=== PATIENT | female | born 1980 | race African-American/Black ===

== ENCOUNTER → 2022-08-24 08:45 | Outpatient (BNVA) | payer OTHER, SELFPAY | PROVIDERS: PCP Physician Assistant; Visit Provider Nurse Practitioner Family | DX: G43.109 Migraine with aura, not intractable, without status migrainosus (principal); G47.19 Other hypersomnia; G47.9 Sleep disorder, unspecified; R06.83 Snoring; F32.A Depression, unspecified; K21.9 Gastro-esophageal reflux disease without esophagitis | CPT/HCPCS: 99202 ==

== ENCOUNTER → 2022-11-09 12:41 | Outpatient (REF) | payer OTHER, SELFPAY | LOC: HO.SL 12:41 | PROVIDERS: PCP Physician Assistant; Visit Provider Nurse Practitioner Family | DX: G47.19 Other hypersomnia (principal); G47.9 Sleep disorder, unspecified; R06.83 Snoring; Z98.890 Other specified postprocedural states | CPT/HCPCS: 95806 ==

== ENCOUNTER 2023-10-02 12:47 | Outpatient (AMB) | payer OTHER, SELFPAY ==
--- NOTE | 2023-10-02 13:15 | MHC.OFFVIS ---
Intake Vital Signs 10/02/23 13:21 Height 51 ft 1 in Weight 116 lb 2 oz BMI 0.2 BP 112/64 Pulse 50 Pulse Source Pulse Oximeter Pulse Oximetry (%) 100 Oxygen Delivery Method Room Air Intake Visit Reasons: follow up-LVM Intake Note: Patient presents for F/U. Lots of headaches and having trouble sleeping at night. Ear blows out air and they hurt. Allergies No Known Allergies Allergy (Verified 10/02/23 13:20) Medication List - Last Reconciled 10/02/23 by ROBERT Cerna amitriptyline 10 mg PO BEDTIME 30 days ferrous sulfate 325 mg PO QAM hydroxyzine pamoate 25 mg PO TID magnesium oxide 400 mg PO BEDTIME 30 days norethindrone (contraceptive) 0.35 mg PO DAILY prazosin 2 mg PO QPM riboflavin (vitamin B2) 400 mg (4 x 100 mg) PO DAILY 30 days sertraline 25 mg PO DAILY sumatriptan succinate 50 - 100 mg orally at onset of headache, may repeat in 2 hrs PRN; max 2 tabs per day or 4 tabs/week (may take with Ibuprofen or Aleve) 30 days trazodone 100 - 200 mg PO BEDTIME PRN HPI HPI Comments History of Present Illness Details 43-yr-old female presents for f/u visit. Pt denies any significant interval medical changes. Denies any interval ear infections. Did recently go to urgent care for pain on the bilateral sides, which is slowly resolving. Dx- ? kidney stones- x-ray was normal. Tx'd w/ Ibuprofen. Denies h/o kidney stones. Does drink a lot of soda. Pt reports her headache and ear symptoms are progressing- more severe more often, still constant. Feels like air is escaping from her ears. Has increased whooshing tinnitus. She did try: Sumatriptan 100mg tab- initially was more effective, now less so. Can cause nausea and dizziness, initially caused vomiting. Riboflavin 400mg qam- ineffective Magnesium 400mg qhs- ineffective Amitriptyline 10mg qhs- ineffective after 2-3 months. Baseline headache characteristics: The episode starts as a holocranial tingling, f/b bilateral temporal pressure, and stabbing pain in bilateral ears (initially worse on right, now worse on left). Pain intensity? 10+/10 Prodrome symptoms? Onset Aura? no preceding aura Associated symptoms? sees black dots, rarely diplopia, blurry vision, photophpbia, phonophobia, nausea, rarely vomiting, external spinning dizziness, lightheadedness, lip twitching, eye lid twitching, eye movements, bilateral cheek numbness, watery eyes, generalized weakness- maybe more noticeable on left, activity intolerance, scalp twitching, head tremor (can occur other times as well), feels ear moves up/down then pops, worsening whooshing tinnitus. 08/24/22, Initial HPI summary: Pt reports that she has been having headaches since May 2020, which have been worsening over time. She was living in [place] when these headaches started. Denies preceding cause, but did have significant left/right ear infections x's 3 in [id number]. Per PCP note, Brain MRI in showed left petrous apex complex opacification of partial pneumatization, partial empty sella. F/u Ct temporal w/o in 02/19 bilateral petrous apex pneumatization w/ patch opacification present on left- raised possibility of trapped fluid in left petrous apex w/o definite expansile or aggressive features. Pt states she recently underwent f/u head imaging at [facility]- results of which I unfortunately do not have- but will request. History of musculoskeletal disorders or injury? None. History of concussion/head injury? None History of mood disorder? depression, anxiety, h/o SI- f/b psychology and psychiatry- [facility]. denies h/o bipolar d/o. History of sleep disorder? Does not sleep well. Difificulty w/ sleep initiation and maintanence. Prone to bad dreams, snoring. Wakes up gasping like she will vomit about twice a week. History of respiratory disease? h/o lung surgery 2017- bilateral lung collapsed. Since easily SOBOE. History of CV disease? h/o of HTN but stable for a few years History of coagulopathy? None History of endocrine or metabolic disease? None History of seizure? None Family planning? No PFSH Surgical History History of lung surgery Family History Mother Stomach cancer Father AIDS Maternal Grandmother Lung cancer Maternal Aunt Throat cancer Social History Alcohol intake: current Alcohol intake frequency: holidays/special occasions only Patient Tobacco Use Status: Never used Tobacco Physical Exam Vital Signs: Last Vital Signs Pulse 50 10/02/23 13:21 BP 112/64 10/02/23 13:21 Pulse Ox 100 10/02/23 13:21 Oxygen Delivery Method Room Air 10/02/23 13:21 BMI result Body Mass Index 0.2 Const General: cooperative and no acute distress Orientation/consciousness: patient oriented x3 Resp Effort & Inspection: normal respiratory effort and able to speak in complete sentences Neuro General: patient oriented x3 Cranial nerves: Yes CN's II-XII intact bilaterally Cognition (Neuro): normal cognition Psych Appearance: grossly normal Mental Status: mental status grossly normal Speech and movement: Normal speech and movement present Affect: normal affect Attitude: cooperative Assessment & Plan Assessment & Plan (1) Worsening headaches: Code(s): R51.9 - Headache, unspecified (2) Tinnitus, bilateral: Code(s): H93.13 - Tinnitus, bilateral (3) Chronic migraine with aura: Comment: ? if some aura-like s/s of twitching are secondary to muscle spasms. Code(s): G43.109 - Migraine with aura, not intractable, without status migrainosus Plan Pt advised to undergo f/u brain MRI w/wo to assess status of previous Brain MRI results- Brain MRI in showed left petrous apex complex opacification of partial pneumatization, partial empty sella with f/u Ct temporal w/o in 02/19 bilateral petrous apex pneumatization w/ patch opacification present on left. Will refer pt for ENT consult. Reviewed HST- no evidence for sleep apnea. Consider in-lab PSG in f/u. For overall headache management: Continue to optimize good self-care, including but not limited to maintaining a healthy diet, adequate fluid intake, adequate sleep, and engaging in regular physical activity. Track headaches. For acute headache treatment: Discussed importance of taking acute medications at the first sign of headache, however stressed importance of avoiding acute medication overuse (especially with combined headache medications). Trial Rizatriptan 10mg prn. May take w/ Ibuprofen. Hold Sumatriptan 100mg tab- lost effectiveness. Previous acute migraine medication trials: fioricet- ineffective. Acute migraine medication contraindications: None at this time For headache prevention medication: Hold Riboflavin 400mg qam Hold Magnesium 400mg qhs Resume Amitriptyline at increased dose of 25mg qhs Start Emgality 240mg sc x's 1, then 120mg sc x's 1. Previous migraine prevention medication trials: None Migraine prevention medication contraindications: I would avoid BBs as pt has h/o tamiko collapsed lung/surgery and has residual SOBOE. f/u appt in 6 months or sooner prn. Orders: Orders MR head/brain wo/w con Today E23.6 - Other disorders of pituitary gland, H93.13 - Tinnitus, bilateral, R51.9 - Headache, unspecified Referrals Ear/Nose/Throat Referral E23.6 - Other disorders of pituitary gland, H93.13 - Tinnitus, bilateral, R51.9 - Headache, unspecified Medications: New rizatriptan max 2 tabs per day or 4 tabs per week (may take w/ Ibuprofen) 5 - 10 mg (0.5 - 1 x 10 mg) PO Q2H 21 days PRN 12 tabs 3RF migraine headache amitriptyline 25 mg PO BEDTIME 30 days 30 tabs 3RF galcanezumab-gnlm (Emgality Pen) Loading dose 240mg 240 mg (2 mL) subcut ONCE 30 days 2 mL 0RF Discontinued amitriptyline Discontinued Reason: Doctor's Order 10 mg PO BEDTIME 30 days 30 tabs 3RF Coding Level of Care Code Est Pt Level 4 (24689) Diagnoses Worsening headaches R51.9 Tinnitus, bilateral H93.13 Chronic migraine with aura G43.109
[2023-10-02 13:21] VITALS: BP 112/64; PULSE 50; O2SAT 100
== END 2023-10-02 14:00 | disposition home or self-care (01) ==
PROVIDERS: PCP Physician Assistant; Visit Provider Nurse Practitioner Family
DX: R51.9 Headache, unspecified (principal); H93.13 Tinnitus, bilateral; G43.109 Migraine with aura, not intractable, without status migrainosus
CPT/HCPCS: 99214

== ENCOUNTER → 2023-10-02 12:47 | Outpatient (BNVA) | payer OTHER, SELFPAY | PROVIDERS: PCP Physician Assistant; Visit Provider Nurse Practitioner Family | DX: R51.9 Headache, unspecified (principal); G43.109 Migraine with aura, not intractable, without status migrainosus; H93.13 Tinnitus, bilateral | CPT/HCPCS: 99212 ==

== ENCOUNTER 2023-11-20 07:52 | Outpatient (REF) | payer OTHER, SELFPAY ==
--- NOTE | ~2023-11-20 | MR_ITS ---
MRI OF THE BRAIN WITH AND WITHOUT IV CONTRAST INDICATION: Headache. MRI brain [place] showing left petrous apex complex opacification of partial pneumatization and partially empty sella. Follow-up CT temporal bone in February 19 with bilateral petrous apex pneumatization with patchy opacification present on the left raising the possibility of trapped fluid within the left petrous apex. COMPARISON: None available at the time of dictation. TECHNIQUE: Multiplanar multisequence MR imaging of the brain was obtained without and following the administration of 2.5 mL of Gadavist without complication. FINDINGS: There is no pathologic intracranial enhancement. There is no hydrocephalus, extra-axial surface collection, or herniation. The major flow voids at the skull base are preserved. There is no acute infarct on diffusion-weighted imaging. There is no intracranial hemorrhage on the gradient recalled echo acquisition. There is a possible focal area of hypoenhancement within the right aspect of the anterior pituitary lobe measuring 5 mm that can be correlated with endocrine function tests to exclude a functional pituitary microadenoma. There is no significant sellar/suprasellar mass effect. The cerebellar tonsils are normally positioned. The cerebellum and brainstem are normal. Opacification of left greater then right petrous apex air cells that can be compared to any outside imaging if available for comparison. No definite petrous apex expansion to suggest a cholesterol granuloma. No pathologic enhancement in these areas. MR/MR head/brain wo/w con IMPRESSION: - Opacification of left greater then right petrous apex air cells that can be compared to any outside imaging if available for comparison. No definite petrous apex expansion to suggest a cholesterol granuloma. No pathologic enhancement in these areas. - There is a possible focal area of hypoenhancement within the right aspect of the anterior pituitary lobe measuring 5 mm that can be correlated with endocrine function tests to exclude a functional pituitary microadenoma. There is no significant sellar/suprasellar mass effect.
[2023-11-20] MEDS: gadobutroL 7.5 ML VIAL IVPUSH (09:05)
== END 2023-11-20 07:53 | disposition home or self-care (01) ==
LOC: HO.MRI 07:52
PROVIDERS: PCP Physician Assistant; Visit Provider Nurse Practitioner Family
DX: R51.9 Headache, unspecified (principal); E23.6 Other disorders of pituitary gland; H93.13 Tinnitus, bilateral
CPT/HCPCS: 70553; A9585

== ENCOUNTER 2024-03-11 13:29 | Outpatient (AMB) | payer OTHER, SELFPAY ==
[2024-03-11 13:36] VITALS: BP 110/76; BMI 21.0
--- NOTE | 2024-03-11 13:36 | A.OFFVIS_ITS ---
Vital Signs 03/11/24 13:36 Height 5 ft 1 in Weight 111 lb BMI 21.0 BP 110/76 Blood Pressure Location Rt brachial Position Sitting Intake Visit Reasons: follow up Intake Note: Patient presents for follow up. Allergies No Known Allergies Allergy (Verified 03/11/24 13:38) Medication List - Last Reconciled 03/11/24 by ROBERT Cerna alprazolam 0.25 - 0.5 mg orally 1 tab 30 minutes prior to MRI, may repeat 0.25mg x's 1; (max 3 tabs in a day) 1 day amitriptyline 25 mg PO BEDTIME 30 days ferrous sulfate 325 mg PO QAM galcanezumab-gnlm (Emgality Pen) 240 mg (2 mL) subcut ONCE 30 days hydroxyzine pamoate 25 mg PO TID magnesium oxide 400 mg PO BEDTIME 30 days norethindrone (contraceptive) 0.35 mg PO DAILY prazosin 2 mg PO QPM riboflavin (vitamin B2) 400 mg (4 x 100 mg) PO DAILY 30 days rizatriptan 5 - 10 mg (0.5 - 1 x 10 mg) PO Q2H PRN 21 days sertraline 25 mg PO DAILY sumatriptan succinate 50 - 100 mg orally at onset of headache, may repeat in 2 hrs PRN; max 2 tabs per day or 4 tabs/week (may take with Ibuprofen or Aleve) 30 days trazodone 100 - 200 mg PO BEDTIME PRN HPI Comments Details: 44-yr-old female presents for f/u visit. Pt denies any significant interval medical changes. She has noticed increased headaches. Pt reports she has had an increase in the sensation of blowing inside her ears. She is still having a constant migraine headache, with varying intensity. She never rec'd Emgality- insurance requires a BB trial. Has had some blurry vision- w/ reading or looking closer. Using OTC readers but reading for long can trigger a migraine. No peripheral vision loss or diplopia. She has not heard from ENT office. 10/2023, MR/MR head/brain wo/w con IMPRESSION: - Opacification of left greater then right petrous apex air cells that can be compared to any outside imaging if available for comparison. No definite petrous apex expansion to suggest a cholesterol granuloma. No pathologic enhancement in these areas. - There is a possible focal area of hypoenhancement within the right aspect of the anterior pituitary lobe measuring 5 mm that can be correlated with endocrine function tests to exclude a functional pituitary microadenoma. There is no significant sellar/suprasellar mass effect. Baseline headache characteristics: The episode starts as a holocranial tingling, f/b bilateral temporal pressure, and stabbing pain in bilateral ears (initially worse on right, now worse on left). Pain intensity? 10+/10 Prodrome symptoms? Onset Aura? no preceding aura Associated symptoms? sees black dots, rarely diplopia, blurry vision, photophpbia, phonophobia, nausea, rarely vomiting, external spinning dizziness, lightheadedness, lip twitching, eye lid twitching, eye movements, bilateral cheek numbness, watery eyes, generalized weakness- maybe more noticeable on left, activity intolerance, scalp twitching, head tremor (can occur other times as well), feels ear moves up/down then pops, worsening whooshing tinnitus. 08/24/22, Initial HPI summary:Pt reports that she has been having headaches since May 2020, which have been worsening over time. She was living in [place] when these headaches started. Denies preceding cause, but did have significant left/right ear infections x's 3 in [id number]. Per PCP note, Brain MRI in showed left petrous apex complex opacification of partial pneumatization, partial empty sella. F/u Ct temporal w/o in 02/19 bilateral petrous apex pneumatization w/ patch opacification present on left- raised possibility of trapped fluid in left petrous apex w/o definite expansile or aggressive features. Pt states she recently underwent f/u head imaging at [place]- results of which I unfortunately do not have- but will request. History of musculoskeletal disorders or injury? None. History of concussion/head injury? None History of mood disorder? depression, anxiety, h/o SI- f/b psychology and psychiatry- [facility]. denies h/o bipolar d/o. History of sleep disorder? Does not sleep well. Difificulty w/ sleep initiation and maintanence. Prone to bad dreams, snoring. Wakes up gasping like she will vomit about twice a week. History of respiratory disease? h/o lung surgery 2017- bilateral lung collapsed. Since easily SOBOE. History of CV disease? h/o of HTN but stable for a few years History of coagulopathy? None History of endocrine or metabolic disease? None History of seizure? None Family planning? No PFSH Medical History (Updated 03/11/24 @ 14:14 by ROBERT Cerna) Anemia Surgical History History of lung surgery Family History Mother Stomach cancer Father AIDS Maternal Grandmother Lung cancer Maternal Aunt Throat cancer Social History Alcohol intake: current Alcohol intake frequency: holidays/special occasions only Patient Tobacco Use Status: Never used Tobacco Physical Exam Vital Signs: Last Vital Signs BP 110/76 03/11/24 13:36 BMI result Body Mass Index 21.0 Const General: cooperative and no acute distress Orientation/consciousness: patient oriented x3 Resp Effort & Inspection: normal respiratory effort and able to speak in complete sentences Neuro General: patient oriented x3 Cranial nerves: Yes CN's II-XII intact bilaterally Cognition (Neuro): normal cognition Psych Appearance: grossly normal Mental Status: mental status grossly normal Speech and movement: Normal speech and movement present Affect: normal affect Attitude: cooperative Assessment & Plan Assessment & Plan (1) Chronic migraine with aura: Comment: ? if some aura-like s/s of twitching are secondary to muscle spasms. Code(s): G43.109 - Migraine with aura, not intractable, without status migrainosus Category: Medical (2) Hot flashes: Code(s): R23.2 - [place] Category: Medical (3) Irregular menses: Code(s): N92.6 - Irregular menstruation, unspecified Category: Medical (4) Cyst of pituitary gland: Code(s): E23.6 - Other disorders of pituitary gland Category: Medical Plan Reviewed updated Brain wo/w con, which showed opacification of left greater then right petrous apex air cells that can be compared to any outside imaging if available for comparison. No definite petrous apex expansion to suggest a cholesterol granuloma. No pathologic enhancement in these areas. Possible focal area of hypoenhancement within the right aspect of the anterior pituitary lobe measuring 5 mm that can be correlated with endocrine function tests to exclude a functional pituitary microadenoma. There is no significant sellar/suprasellar mass effect. Brain MRI in showed left petrous apex complex opacification of partial pneumatization, partial empty sella with f/u Ct temporal w/o in 02/19 bilateral petrous apex pneumatization w/ patch opacification present on left. Will f/u on referal for ENT consult. Check labs. Will request eye exam. HST- no evidence for sleep apnea. Consider in-lab PSG in f/u. ? For overall headache management: Continue to optimize good self-care, including but not limited to maintaining a healthy diet, adequate fluid intake, adequate sleep, and engaging in regular physical activity. Track headaches. ? For acute headache treatment: Rizatriptan 10mg prn. May take w/ Ibuprofen. Previous acute migraine medication trials: fioricet- ineffective. Sumatriptan 100mg tab- lost effectiveness. Acute migraine medication contraindications: None at this time ? For headache prevention medication: Amitriptyline 25mg qhs Start Propranolol 10mg bid. Hold Emgality 240mg sc x's 1, then 120mg sc x's 1- was denied by insurance. Previous migraine prevention medication trials: Riboflavin 400mg qam, Magnesium 400mg qhs- ineffective Migraine prevention medication contraindications: none at this time. ? f/u appt in 6 months or sooner prn. Orders: Orders Free T4 (Free Thyroxine) Today E23.6 - Other disorders of pituitary gland, N92.6 - Irregular menstruation, unspecified, R23.2 - [place] Follicle Stimulating Hormone Today E23.6 - Other disorders of pituitary gland, N92.6 - Irregular menstruation, unspecified, R23.2 - [place] Estrad Free (Tot Ultra + Free) Today E23.6 - Other disorders of pituitary gland, N92.6 - Irregular menstruation, unspecified, R23.2 - [place] CRP High Sensitivity Today D64.9 - Anemia, unspecified, F32.A - Depression, unspecified, H53.8 - Other visual disturbances, R23.2 - [place], R51.9 - Headache, unspecified Erythrocyte Sedimentation Rate Today D64.9 - Anemia, unspecified, F32.A - Depression, unspecified, H53.8 - Other visual disturbances, R23.2 - [place], R51.9 - Headache, unspecified Ferritin Today D64.9 - Anemia, unspecified, F32.A - Depression, unspecified, H 53.8 - Other visual disturbances, R23.2 - [place], R51.9 - Headache, unspecified Homocysteine Today D64.9 - Anemia, unspecified, F32.A - Depression, unspecified, H53.8 - Other visual disturbances, R23.2 - [place], R51.9 - Headache, unspecified Thyroid Stimulating Hormone Today E23.6 - Other disorders of pituitary gland, N92.6 - Irregular menstruation, unspecified, R23.2 - [place] Lutenizing Hormone Today E23.6 - Other disorders of pituitary gland, N92.6 - Irregular menstruation, unspecified, R23.2 - [place] Prolactin Today E23.6 - Other disorders of pituitary gland, N92.6 - Irregular menstruation, unspecified, R23.2 - [place] Human Growth Hormone Today E23.6 - Other disorders of pituitary gland, N92.6 - Irregular menstruation, unspecified, R23.2 - [place] IGF-1 (Somatomedin C) Today E23.6 - Other disorders of pituitary gland, N92.6 - Irregular menstruation, unspecified, R23.2 - [place] Complete Blood Count Auto Diff Today D64.9 - Anemia, unspecified, F32.A - Depression, unspecified, H53.8 - Other visual disturbances, R23.2 - [place], R51.9 - Headache, unspecified Comprehensive Met. Panel Today D64.9 - Anemia, unspecified, F32.A - Depression, unspecified, H53.8 - Other visual disturbances, R23.2 - [place], R51.9 - Headache, unspecified Vitamin B12 and Folate Today D64.9 - Anemia, unspecified, F32.A - Depression, unspecified, H53.8 - Other visual disturbances, R23.2 - [place], R51.9 - Headache, unspecified Referrals Ophthalmology Referral E23.6 - Other disorders of pituitary gland, H53.8 - Other visual disturbances Medications: New propranolol 10 mg PO BID 30 days 60 tabs 3RF Coding Level of Care Code Est Pt Level 4 (68786) Diagnoses Chronic migraine with aura G43.109 Hot flashes R23.2 Irregular menses N92.6 Cyst of pituitary gland E23.6
== END 2024-03-11 14:16 | disposition home or self-care (01) ==
PROVIDERS: PCP Physician Assistant; Visit Provider Nurse Practitioner Family
DX: G43.109 Migraine with aura, not intractable, without status migrainosus (principal); R23.2 Flushing; N92.6 Irregular menstruation, unspecified; E23.6 Other disorders of pituitary gland
CPT/HCPCS: 99214

== ENCOUNTER → 2024-03-11 13:29 | Outpatient (BNVA) | payer OTHER, SELFPAY | PROVIDERS: PCP Physician Assistant; Visit Provider Nurse Practitioner Family | DX: G43.109 Migraine with aura, not intractable, without status migrainosus (principal); R23.2 Flushing; N92.6 Irregular menstruation, unspecified; E23.6 Other disorders of pituitary gland | CPT/HCPCS: 99212 ==

== ENCOUNTER 2024-03-11 14:26 | Outpatient (REF) | payer OTHER, SELFPAY ==
[2024-03-11 17:48] LABS: MANUAL DIFF FLAG NO
[2024-03-11 17:57] LABS: Basophils Percent Auto 0.6 % (0-2); Eosinophils Absolute Auto 0.1 X10*3/uL (0.0-0.4); Eosinophils Percent Auto 2.2 % (0-4); Hematocrit 44.7 % (37.0-47.0); Hemoglobin 14.3 g/dl (12.0-16.0); Imm Gran Abs Auto 0.01 X10*3/uL (0.00-0.03); Imm Gran Pct Auto 0.2 % (0.0-0.4); Lymphocytes Absolute Auto 1.5 X10*3/uL (1.2-4.9); Lymphocytes Percent Auto 29.3 % (20-40); Mean Corpuscular Hemoglobin 29.2 pg (27.0-33.0); Mean Corpuscular Volume 91.4 fL (80.0-98.0); Mean Platelet Volume 10.5 fL (9.4-12.3); Monocytes Absolute Auto 0.3 X10*3/uL (0.1-1.2); Monocytes Percent Auto 5.1 % (2-11); Neutrophils Absolute Auto 3.2 x10*3/uL (2.0-8.3); Neutrophils Percent Auto 62.6 % (45-73); Platelet Count 260 X10*3/uL (160-400); Red Blood Count 4.89 X10*6/uL (4.20-5.50); Red Cell Distribution Width 13.2 % (11.0-16.0); White Blood Count 5.1 X10*3/uL (4.8-10.8)
[2024-03-11 18:47] LABS: Alanine Aminotransferase 13 U/L (0-31); Albumin Level 4.3 g/dL (3.5-5.0); Alkaline Phosphatase 41 U/L (39-117); Anion Gap 11 (12-20); Aspartate Amino Transferase 19 U/L (5-31); Bilirubin Total 0.5 mg/dL (0.0-1.0); Blood Urea Nitrogen 15 mg/dL (9-16); Calcium 10.1 mg/dL (8.4-10.2); Carbon Dioxide 27 mmol/L (22-29); Chloride 106 mmol/L (96-108); Estimated Glomerular Filt Rate > 60; Glucose Random 94 mg/dL (60-115); Potassium 4.1 mmol/L (3.3-5.1); Sodium 140 mmol/L (135-145); Total Protein 7.8 g/dL (6.5-8.0)
[2024-03-11 18:50] LABS: Ferritin 24 ng/mL (10-250); Thyroid Stimulating Hormone 0.26 uIU/mL (0.32-4.0)
[2024-03-11 18:53] LABS: Erythrocyte Sedimentation Rate 9 MM/HR (0-20)
[2024-03-11 20:20] LABS: Folate 12.6 ng/mL (> or = 4.0); Vitamin B12 389 pg/mL (200-900)
[2024-03-12 08:53] LABS: CRP High Sensitivity 0.2 mg/L
[2024-03-12 10:38] LABS: Follicle Stimulating Hormone 115.7 mIU/mL; Lutenizing Hormone 36.3 mIU/mL; Prolactin 4.5 ng/mL
[2024-03-12 16:49] LABS: Homocysteine 11.4 umol/L (<10.4)
[2024-03-14 04:43] LABS: Human Growth Hormone 0.6 ng/mL (< OR = 7.1)
[2024-03-17 13:20] LABS: IGF-1 (Somatomedin C) 104 ng/mL (52-328); IGF-1 Z Score (Female) -0.7 SD (-2.0 - +2.0)
[2024-03-20 07:14] LABS: Estradiol Free 0.21 pg/mL; Estradiol, Ultrasensitive 12 pg/mL
== END 2024-03-11 14:27 | disposition home or self-care (01) ==
LOC: HO.HKASLDS 14:26
PROVIDERS: Visit Provider Nurse Practitioner Family
DX: R23.2 Flushing (principal); N92.6 Irregular menstruation, unspecified; E23.6 Other disorders of pituitary gland; D64.9 Anemia, unspecified; H53.8 Other visual disturbances; R51.9 Headache, unspecified; F32.A Depression, unspecified
CPT/HCPCS: 36415; 80053; 82607; 82670; 82681; 82728; 82746; 83001; 83002; 83003; 83090; 84146; 84305; 84439; 84443; 85025; 85652; 86141

== ENCOUNTER 2024-09-22 13:11 | Outpatient (AMB) | payer OTHER, SELFPAY ==
--- NOTE | 2024-09-22 13:13 | MHC.OFFVIS ---
Vital Signs 09/22/24 13:14 Height 5 ft 1 in Weight 118 lb BMI 22.3 BP 90/60 Blood Pressure Location Rt brachial Position Sitting Intake Visit Reasons: F/U Intake Note: Patient presents follow up migraine medication. Labs in chart. Ophthalmology notes from 03/21/24 in chart Steel Checker Required: No Accompanied by: Self / Same As Patient Allergies No Known Allergies Allergy (Verified 09/22/24 13:17) HPI Comments Details: 44-yr-old female presents for f/u visit of chronic migraine, pituitary lesion, petrous apex complex opacification per brain MRI. Pt denies any significant interval medical changes. She has not had ENT consult for petrous apex complex opacification evaluation- states she had an appt and the office cancelled it. She reports she is having more difficulty sleeping. Sleep routine- puts her 7 yr-old son to bed by 9:30pm, and then wraps up her daily activities, and goes to bed around 10pm, and it takes 2-3 hours to fall asleep, and then waking up around 6-6:30am- feeling very tired. 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 Drinks black tea- last by 12pm. Physically at work. Tries to walk after work with her son- but has not been able to do this in months d/t the winter weather. She has black out curtains, keeping everything dark. However she is prone to ruminating. She is compliant with amitriptyline, trazodone q.h.s. which she states used to help but no longer does, and low-dose sertraline in the morning. She continues to have the constant vibrating, blowing, scalp sensitivity sensations. She notices more migraine/headache around 1pm and later in the evening. Uses rizatriptan usually for the evening migraine. Uses Motrin for the daytime migraine. Using Propranolol 10mg qhs. She does notice some lightheadedness- especially if she has not eaten in the morning or in the shower. She prone to forget to eat breakfast. She never rec'd Emgality- insurance requires a BB trial. During the day her eyes burn and are itchy- has not tried OTC tear gtts. She did have an eye exam- was given glasses which has made it easier to read. No peripheral vision loss or diplopia- unless in a dizzy/migraine episode. 10/2023, MR/MR head/brain wo/w con IMPRESSION: - Opacification of left greater then right petrous apex air cells that can be compared to any outside imaging if available for comparison. No definite petrous apex expansion to suggest a cholesterol granuloma. No pathologic enhancement in these areas. - There is a possible focal area of hypoenhancement within the right aspect of the anterior pituitary lobe measuring 5 mm that can be correlated with endocrine function tests to exclude a functional pituitary microadenoma. There is no significant sellar/suprasellar mass effect. Baseline headache characteristics: The episode starts as a holocranial tingling, f/b bilateral temporal pressure, and stabbing pain in bilateral ears (initially worse on right, now worse on left). Pain intensity? 10+/10 Prodrome symptoms? Onset Aura? no preceding aura Associated symptoms? sees black dots, rarely diplopia, blurry vision, photophpbia, phonophobia, nausea, rarely vomiting, external spinning dizziness, lightheadedness, lip twitching, eye lid twitching, eye movements, bilateral cheek numbness, watery eyes, generalized weakness- maybe more noticeable on left, activity intolerance, scalp twitching, head tremor (can occur other times as well), feels ear moves up/down then pops, worsening whooshing tinnitus. 08/24/22, Initial HPI summary:Pt reports that she has been having headaches since May 2020, which have been worsening over time. She was living in [place] when these headaches started. Denies preceding cause, but did have significant left/right ear infections x's 3 in [id number]. Per PCP note, Brain MRI in showed left petrous apex complex opacification of partial pneumatization, partial empty sella. F/u Ct temporal w/o in 02/19 bilateral petrous apex pneumatization w/ patch opacification present on left- raised possibility of trapped fluid in left petrous apex w/o definite expansile or aggressive features. Pt states she recently underwent f/u head imaging at [place]- results of which I unfortunately do not have- but will request. History of musculoskeletal disorders or injury? None. History of concussion/head injury? None History of mood disorder? depression, anxiety, h/o SI- f/b psychology and psychiatry- [facility]. denies h/o bipolar d/o. History of sleep disorder? Does not sleep well. Difificulty w/ sleep initiation and maintanence. Prone to bad dreams, snoring. Wakes up gasping like she will vomit about twice a week. History of respiratory disease? h/o lung surgery 2017- bilateral lung collapsed. Since easily SOBOE. History of CV disease? h/o of HTN but stable for a few years History of coagulopathy? None History of endocrine or metabolic disease? None History of seizure? None Family planning? No PFSH Medical History (Updated 09/22/24 @ 13:52 by ROBERT Cerna) Anemia Surgical History History of lung surgery Family History Mother Stomach cancer Father AIDS Maternal Grandmother Lung cancer Maternal Aunt Throat cancer Social History Alcohol intake: current Alcohol intake frequency: holidays/special occasions only Patient Tobacco Use Status: Never used Tobacco Physical Exam Vital Signs: Last Vital Signs BP 90/60 09/22/24 13:14 BMI result Body Mass Index 22.3 Const General: cooperative and no acute distress Orientation/consciousness: patient oriented x3 Resp Effort & Inspection: normal respiratory effort and able to speak in complete sentences Neuro General: patient oriented x3 Cranial nerves: Yes CN's II-XII intact bilaterally Cognition (Neuro): normal cognition Psych Appearance: grossly normal Mental Status: mental status grossly normal Speech and movement: Normal speech and movement present Affect: normal affect Attitude: cooperative Assessment & Plan Assessment & Plan (1) Chronic migraine with aura: Comment: ? if some aura-like s/s of twitching are secondary to muscle spasms. Code(s): G43.109 - Migraine with aura, not intractable, without status migrainosus Category: Medical (2) Cyst of pituitary gland: Code(s): E23.6 - Other disorders of pituitary gland Category: Medical (3) Anemia: Code(s): D64.9 - Anemia, unspecified Category: Medical Plan Brain wo/w con, which showed opacification of left greater then right petrous apex air cells that can be compared to any outside imaging if available for comparison. No definite petrous apex expansion to suggest a cholesterol granuloma. No pathologic enhancement in these areas. Possible focal area of hypoenhancement within the right aspect of the anterior pituitary lobe measuring 5 mm that can be correlated with endocrine function tests to exclude a functional pituitary microadenoma. There is no significant sellar/suprasellar mass effect. Brain MRI in showed left petrous apex complex opacification of partial pneumatization, partial empty sella with f/u Ct temporal w/o in 02/19 bilateral petrous apex pneumatization w/ patch opacification present on left. Patient given contact number for ENT office- she will call them to try to reschedule her initial consult appointment Ophthalmology consult completed- new glasses have helped reading vision. Advised to trial OTC teardrops for dry eye, and if ineffective, follow-up with affiliate marketing specialist/water and sewer systems superintendent. For sleep onset difficulties: Previous HST- no evidence for sleep apnea. Patient may benefit from adjustment in her psychiatric medication regimen, such as reducing trazodone as this is no longer effective and does carry risk for worsening headache. And considering increasing sertraline, which may help overall anxiety/ruminating thoughts tendency. Reviewed general sleep education principles, including simple strategies to optimize sleep hygiene and sleep quality. List of sleep resources shared w/pt, such as the podcast sleep unplugged by Dr. Konrad leon ? For overall headache management: Continue to optimize good self-care, including but not limited to maintaining a healthy diet, adequate fluid intake, adequate sleep, and engaging in regular physical activity. Track headaches. ? For acute headache treatment: Rizatriptan 10mg prn. May take w/ Ibuprofen. Previous acute migraine medication trials: fioricet- ineffective. Sumatriptan 100mg tab- lost effectiveness. Acute migraine medication contraindications: None at this time ? For headache prevention medication: Discontinue Propranolol 10mg- ineffective and dose can not be increased due to patient has lightheadedness symptoms already in setting of low BP. Start Emgality 240mg sc x's 1, then 120mg sc once a month. Start Acetazolamide 100mg capsule, initially 125 mg daily at bedtime, may increase slowly up to 250 mg twice a day. Monitor for reduction in intracranial bloating sensation and headache. Check labs, CBC/CMP in 1 month. Continue Amitriptyline 25mg qhs- can not increased further due to current dry eye, risk for worsening morning drowsiness. Previous migraine prevention medication trials: Riboflavin 400mg qam, Magnesium 400mg qhs- ineffective. Propranolol 10mg- ineffective and dose can not be increased due to patient has lightheadedness symptoms already in setting of low BP.. ? f/u appt in 6 months or sooner prn. Orders: Orders Complete Blood Count Auto Diff Today D64.9 - Anemia, unspecified, N92.6 - Irregular menstruation, unspecified, R23.2 - Fl[place] Comprehensive Met. Panel Today D64.9 - Anemia, unspecified, N92.6 - Irregular menstruation, unspecified, R23.2 - Flushing Medications: New acetazolamide 250 mg (2 x 125 mg) PO BID 30 days 120 tabs 3RF Refilled galcanezumab-gnlm (Emgality Pen) Loading dose 240mg 240 mg (2 mL) subcut ONCE 30 days 2 mL 0RF Coding Level of Care Code Est Pt Level 4 (91018) Complex EM visit Add On G2211 Diagnoses Chronic migraine with aura G43.109 Cyst of pituitary gland E23.6 Anemia D64.9
[2024-09-22 13:14] VITALS: BP 90/60; BMI 22.3
== END 2024-09-22 14:04 | disposition home or self-care (01) ==
LOC: HO.HSMS 13:12
PROVIDERS: PCP Physician Assistant; Visit Provider Nurse Practitioner Family
DX: G43.109 Migraine with aura, not intractable, without status migrainosus (principal); E23.6 Other disorders of pituitary gland; D64.9 Anemia, unspecified
CPT/HCPCS: 99214; G2211

== ENCOUNTER → 2024-09-22 13:11 | Outpatient (BNVA) | payer OTHER, SELFPAY | PROVIDERS: PCP Physician Assistant; Visit Provider Nurse Practitioner Family | DX: G43.109 Migraine with aura, not intractable, without status migrainosus (principal); E23.6 Other disorders of pituitary gland; D64.9 Anemia, unspecified | CPT/HCPCS: 99212 ==

== ENCOUNTER 2025-03-27 08:41 | Outpatient (AMB) | payer OTHER, SELFPAY ==
[2025-03-27 08:43] VITALS: BP 100/70; PULSE 76; O2SAT 96; BMI 22.7
--- NOTE | 2025-03-27 08:43 | A.OFFVIS_ITS ---
Vital Signs 03/27/25 08:43 Height 5 ft 1 in Weight 120 lb BMI 22.7 BP 100/70 Blood Pressure Location Lt brachial Position Sitting Pulse 76 Pulse Source Pulse Oximeter Pulse Oximetry (%) 96 Oxygen Delivery Method Room Air Intake Visit Reasons: 6mnth follow up Intake Note: Patient presents follow up migraine medication. Labs in chart. 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 Required: No Accompanied by: Self / Same As Patient Allergies No Known Allergies Allergy (Verified 03/27/25 08:48) Medication List - Last Reconciled 03/27/25 by ROBERT Cerna acetazolamide 250 mg (2 x 125 mg) PO BID 30 days alprazolam 0.25 - 0.5 mg orally 1 tab 30 minutes prior to MRI, may repeat 0.25mg x's 1; (max 3 tabs in a day) 1 day amitriptyline 25 mg PO BEDTIME 30 days ferrous sulfate 325 mg PO QAM galcanezumab-gnlm (Emgality Pen) 120 mg subcut Q30D 30 days hydroxyzine pamoate 25 mg PO TID magnesium oxide 400 mg PO BEDTIME 30 days norethindrone (contraceptive) 0.35 mg PO DAILY propranolol 10 mg PO BID 30 days riboflavin (vitamin B2) 400 mg (4 x 100 mg) PO DAILY 30 days rizatriptan 5 - 10 mg (0.5 - 1 x 10 mg) PO Q2H PRN 21 days sertraline 25 mg PO DAILY sumatriptan succinate 50 - 100 mg orally at onset of headache, may repeat in 2 hrs PRN; max 2 tabs per day or 4 tabs/week (may take with Ibuprofen or Aleve) 30 days trazodone 100 - 200 mg (1 - 2 x 100 mg) PO BEDTIME PRN 30 days HPI Comments Details: 45-yr-old female presents for f/u visit of chronic migraine, pituitary lesion, petrous apex complex opacification per brain MRI. Pt denies any significant interval medical changes. She has had her initial ENT consult for the previously observed petrous apex complex opacification brain MRI, and they have advised her to undergo follow-up brain MRI w/wo. Patient states that she may have made them think she needed the MRI under anesthesia, rather than just needing an anti-anxiety tx before the MRI. She did well with the last MRI with/ pre-tx with alprazolam. The patient reports experiencing daily headaches, which are somewhat less noticeable when she is busy at work. 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 Denies vision changes, but has had an eye exam and was given glasses. Though notes that the glasses have not reduced her headaches. She is compliant with acetazolamide. She has not started emgality yet, and requests injection training. 09/22/2024, Previous HPI: She has not had ENT consult for petrous apex complex opacification evaluation- states she had an appt and the office cancelled it. She reports she is having more difficulty sleeping. Sleep routine- puts her 7 yr-old son to bed by 9:30pm, and then wraps up her daily activities, and goes to bed around 10pm, and it takes 2-3 hours to fall asleep, and then waking up around 6-6:30am- feeling very tired. 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 Drinks black tea- last by 12pm. Physically at work. Tries to walk after work with her son- but has not been able to do this in months d/t the winter weather. She has black out curtains, keeping everything dark. However she is prone to ruminating. She is compliant with amitriptyline, trazodone q.h.s. which she states used to help but no longer does, and low-dose sertraline in the morning. She continues to have the constant vibrating, blowing, scalp sensitivity sensations. She notices more migraine/headache around 1pm and later in the evening. Uses rizatriptan usually for the evening migraine. Uses Motrin for the daytime migraine. Using Propranolol 10mg qhs. She does notice some lightheadedness- especially if she has not eaten in the morning or in the shower. She prone to forget to eat breakfast. She never rec'd Emgality- insurance requires a BB trial. During the day her eyes burn and are itchy- has not tried OTC tear gtts. She did have an eye exam- was given glasses which has made it easier to read. No peripheral vision loss or diplopia- unless in a dizzy/migraine episode. 10/2023, MR/MR head/brain wo/w con - Opacification of left greater then right petrous apex air cells that can be compared to any outside imaging if available for comparison. No definite petrous apex expansion to suggest a cholesterol granuloma. No pathologic enhancement in these areas. - There is a possible focal area of hypoenhancement within the right aspect of the anterior pituitary lobe measuring 5 mm that can be correlated with endocrine function tests to exclude a functional pituitary microadenoma. There is no significant sellar/suprasellar mass effect. Baseline headache characteristics: The episode starts as a holocranial tingling, f/b bilateral temporal pressure, and stabbing pain in bilateral ears (initially worse on right, now worse on left). Pain intensity? 10+/10 Prodrome symptoms? Onset Aura? no preceding aura Associated symptoms? sees black dots, rarely diplopia, blurry vision, photophpbia, phonophobia, nausea, rarely vomiting, external spinning dizziness, lightheadedness, lip twitching, eye lid twitching, eye movements, bilateral cheek numbness, watery eyes, generalized weakness- maybe more noticeable on left, activity intolerance, scalp twitching, head tremor (can occur other times as well), feels ear moves up/down then pops, worsening whooshing tinnitus. A 08/24/22, Initial HPI summary: Pt reports that she has been having headaches since May 2020, which have been worsening over time. She was living in [place] when these headaches started. Denies preceding cause, but did have significant left/right ear infections x's 3 in [id number]. Per PCP note, Brain MRI in g/2021 showed left petrous apex complex opacification of partial pneumatization, partial empty sella. F/u Ct temporal w/o in 02/19 bilateral petrous apex pneumatization w/ patch opacification present on left- raised possibility of trapped fluid in left petrous apex w/o definite expansile or aggressive features. Pt states she recently underwent f/u head imaging at [facility]- results of which I unfortunately do not have- but will request. History of musculoskeletal disorders or injury? None. History of concussion/head injury? None History of mood disorder? depression, anxiety, h/o SI- f/b psychology and psychiatry- [facility]. denies h/o bipolar d/o. History of sleep disorder? Does not sleep well. Difificulty w/ sleep initiation and maintanence. Prone to bad dreams, snoring. Wakes up gasping like she will vomit about twice a week. History of respiratory disease? h/o lung surgery 2016- bilateral lung collapsed. Since easily SOBOE. History of CV disease? h/o of HTN but stable for a few years History of coagulopathy? None History of endocrine or metabolic disease? None History of seizure? None Family planning? No PFSH Medical History (Updated 03/27/25 @ 09:46 by ROBERT Cerna) Anemia Surgical History History of lung surgery Family History Mother Stomach cancer Father AIDS Maternal Grandmother Lung cancer Maternal Aunt Throat cancer Social History Alcohol intake: current Alcohol intake frequency: holidays/special occasions only Patient Tobacco Use Status: Never used Tobacco Physical Exam Vital Signs: Last Vital Signs Pulse 76 03/27/25 08:43 BP 100/70 03/27/25 08:43 Pulse Ox 96 03/27/25 08:43 Oxygen Delivery Method Room Air 03/27/25 08:43 BMI result Body Mass Index 22.7 Const General: cooperative and no acute distress Orientation/consciousness: patient oriented x3 Resp Effort & Inspection: normal respiratory effort and able to speak in complete sentences Neuro General: patient oriented x3 Cranial nerves: Yes CN's II-XII intact bilaterally Cognition (Neuro): normal cognition Psych Appearance: grossly normal Mental Status: mental status grossly normal Speech and movement: Normal speech and movement present Affect: normal affect Attitude: cooperative Assessment & Plan Assessment & Plan (1) Chronic migraine with aura: Comment: ? if some aura-like s/s of twitching are secondary to muscle spasms. Code(s): G43.109 - Migraine with aura, not intractable, without status migrainosus Category: Medical Qualifiers: Intractability: not intractable Status migrainosus presence: without status migrainosus Qualified Code(s): G43.E09 - Chronic migraine with aura, not intractable, without status migrainosus (2) Cyst of pituitary gland: Code(s): E23.6 - Other disorders of pituitary gland Category: Medical (3) Anemia: Code(s): D64.9 - Anemia, unspecified Category: Medical Qualifiers: Anemia type: unspecified type Qualified Code(s): D64.9 - Anemia, unspecified Plan Brain wo/w con, which showed opacification of left greater then right petrous apex air cells that can be compared to any outside imaging if available for comparison. No definite petrous apex expansion to suggest a cholesterol granuloma. No pathologic enhancement in these areas. Possible focal area of hypoenhancement within the right aspect of the anterior pituitary lobe measuring 5 mm that can be correlated with endocrine function tests to exclude a functional pituitary microadenoma. There is no significant sellar/suprasellar mass effect. Brain MRI in showed left petrous apex complex opacification of partial pneumatization, partial empty sella with f/u Ct temporal w/o in 02/19 bilateral petrous apex pneumatization w/ patch opacification present on left. Follow-up brain MRI w/wo contrast and follow-up with ENT as scheduled. If needed, we can prescribe pre-MRI alprazolam (0.25mg tab: 1-2 tabs 30 minutes before MRI, and 1 tab at time of the MRI) as patient did well with this regimen before the last MRI. Follow-up with ophthalmology as scheduled. For sleep onset difficulties: Previous HST- no evidence for sleep apnea. Will monitor Previously reviewed general sleep education principles, including simple strategies to optimize sleep hygiene and sleep quality. List of sleep resources shared w/pt, such as the podcast sleep unplugged by Dr. Konrad leon For overall headache management: Continue to optimize good self-care, including but not limited to maintaining a healthy diet, adequate fluid intake, adequate sleep, and engaging in regular physical activity. Track headaches. Check follow-up labs today ? For acute headache treatment: Rizatriptan 10mg prn. May take w/ Ibuprofen. Previous acute migraine medication trials: fioricet- ineffective. Sumatriptan 100mg tab- lost effectiveness. Acute migraine medication contraindications: None at this time ? For headache prevention medication: Patient is again advised to start Emgality- will schedule RN injection administration training visit. Start Emgality 240mg sc x's 1, then 120mg sc once a month. Continue Acetazolamide 100mg capsule, initially 125 mg daily at bedtime, may increase slowly up to 250 mg twice a day. Monitor for reduction in intracranial bloating sensation and headache. * Check labs, CBC/CMP today Continue Amitriptyline 25mg qhs- can not increased further due to current dry eye, risk for worsening morning drowsiness. Previous migraine prevention medication trials: Riboflavin 400mg qam, Magnesium 400mg qhs- ineffective. Propranolol 10mg- ineffective and dose can not be increased due to patient has lightheadedness symptoms already in setting of low BP.. ? f/u appt in 6 months or sooner prn. Orders: Orders Vitamin B12 and Folate Today D64.9 - Anemia, unspecified, R20.2 - Paresthesia of skin, R23.2 - Flushing Homocysteine Today D64.9 - Anemia, unspecified, R20.2 - Paresthesia of skin, R23.2 - [place]ushing Methylmalonic Acid Today D64.9 - Anemia, unspecified, R20.2 - Paresthesia of skin, R23.2 - [place] Vitamin B1 Today D64.9 - Anemia, unspecified, E51.9 - Thiamine deficiency, unspecified, R20.2 - Paresthesia of skin, R23.2 - [place] Vitamin B6 Today D64.9 - Anemia, unspecified, R20.2 - Paresthesia of skin, R23.2 - [place] Vitamin D 25-OH (D2 and D3) Today D64.9 - Anemia, unspecified, E55.9 - Vitamin D deficiency, unspecified, R20.2 - Paresthesia of skin, R23.2 - Flushing TSH reflex Free T4 Today D64.9 - Anemia, unspecified, R20.2 - Paresthesia of skin, R23.2 - Flushing Complete Blood Count Auto Diff Today D64.9 - Anemia, unspecified, R20.2 - Paresthesia of skin, R23.2 - [place] Comprehensive [place]. Panel Fast Today D64.9 - Anemia, unspecified, R20.2 - Paresthesia of skin, R23.2 - [place]ushing Coding Level of Care Code Est Pt Level 4 (08297) Diagnoses Chronic migraine with aura without status migrainosus, not intractable G43.E09 Intractability: not intractable Status migrainosus presence: without status migrainosus Cyst of pituitary gland E23.6 Anemia, unspecified type D64.9 Anemia type: unspecified type
--- OUTSIDE RECORDS SUMMARY | 2025-03-27 09:07 | XMS_ITS ---
Author Name [facility] Organization Unknown Care Team Organization Name Specialty Phone Email Start Date End Da donald [facility]lin [facility] 05/09/20222023
--- OUTSIDE RECORDS SUMMARY | 2025-03-27 09:07 | XMS_ITS | Clinical Summary ---
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 3 Active ALPRAZolam (XANAX) 0.25 mg tablet Take 1 Tablet by mouth daily as needed. 4 Active amitriptyline (ELAVIL) 25 mg tablet Take 1 Tablet by mouth at bedtime. 4 Active hydrOXYzine pamoate (VISTARIL) 25 mg capsule Take 1 Capsule by mouth 3 times daily as needed. 4 Active naproxen (NAPROSYN) 500 mg tablet Take 1 Tablet by mouth at bedtime as needed. Active prazosin (MINIPRESS) 2 mg capsule Take 1 Capsule by mouth at bedtime. 4 Active riboflavin (VITAMIN B2) 100 mg tablet Take 1 Tablet by mouth 2 times daily. 3 Active rizatriptan (MAXALT) 10 mg tablet Take 1 Tablet by mouth daily as needed. 4 Active sertraline (ZOLOFT) 50 mg tablet Take 1 Tablet by mouth daily. 4 Active SUMAtriptan (IMITREX) 100 mg tablet PLEASE SEE ATTACHED FOR DETAILED DIRECTIONS 3 Active traZODone (DESYREL) 100 mg tablet Take 2 Tablets by mouth at bedtime as needed. 4 Active propranoloL (INDERAL) 10 mg tablet Take 1 tablet (10 mg total) by mouth 2 (two) times a day. 4 Active amoxicillin-cla vulanate (AUGMENTIN) 875-125 mg per tablet Take 1 tablet by mouth 2 (two) times a day for 7 days. 14 each 5 03/02/20 25 predniSONE (DELTASONE) 20 mg tablet Take 2 tablets (40 mg total) by mouth 1 (one) time each day for 5 days. Take with food in the morning 10 tablet 5 02/29/20 Active Problems Problem Noted Date Diagnosed Date PTSD (post-traumatic stress disorder) 12/06/2023 Anxiety and depression 02/27/2023 Hyperlipidemia 02/27/2023 Insomnia 02/27/2023 Iron deficiency anemia 02/27/2023 Migraine headache 02/27/2023 Encounters Date Type Department Care Team Description 02/23/2025 9:15 AM EDT Office Visit [facility] - [address] [phone] Aman Lewis [place] Peritonsillar abscess (Primary Dx) from Last 3 Months Immunizations Name Administration Dates Next Due Moderna SARS-CoV-2 COVID-19, mRNA, LNP-S, preservative free 02/19/2021,01/20/2021 Tdap Tetanus diptheria acell ular pertussis (Boostrix; Adacel) 7yo and older 02/27/2023 Surgical History Surgery Date Site/Laterality Comments OTHER SURGICAL HISTORY PROCEDURE: HISTORY OTHER; COMMENT: collapsed lung OTHER SURGICAL HISTORY Right PROCEDURE: AK SALPINGOSTOMY Medical History Medical History Date Comments Depression DX:Depression History of pneumothorax DX:Histo ry of pneumothorax; COMMENT: initially right, then left occurred 8 months after (2017) Migraines DX:Migraines Abnormal TSH Family History Medical History Relation Name Comments Other cancer Aunt throat cancer Other: Other Father AIDS Other cancer Maternal Grandmother lung ca ncer Other cancer Mother stomach cancer - age 46 Relation Name Status Comments Aunt Brother 1 Alive Brother 2 Alive Brother 3 Alive Brother 4 Alive Father Maternal Grandfather Maternal Grandmother Mother Paternal Grandfather Alive Paternal Grandmother Sister 1 Alive Sister 2 Alive Social History Tobacco Use Types Packs/Day Years Used Date Smoking Tobacco: Never Smokeless Tobacco: Never Alcohol Use Standard Drinks/Week Comments Not Currently 0 (1 standard drink = 0.6 oz pur e alcohol) OCCASIONALLY Housing Instability Answer Date Recorde d Are you worried that in the next 2 months you may not have stable housing? No 08/01/2024 Food Access & Nutrition Answer Date Rec orded Do you have access to a vari ety of food including fruits and vegetables? No 08/01/2024 Access to Healthcare Answer Date Record ed Within the last 3 months, ho w many times did you visit the emergency department for your medical care? 0 08/01/2024 Health Literacy Answer Date Recorded How often do you need to hav e someone help you when you read instructions, pamphlets, or other written material from your doctor or pharmacy? Never 08/01/2024 Caregiver: How often do you need to have someone help you when you read instructions, pamphlets, or other written material from your doctor or pharmacy? Not on file 08/01/2024 Financial Risk Answer Date Recorded How hard is it for you to pa y for the very basics like food, housing, medical care, and air conditioning / heating? Somewhat hard 08/01/2024 Transportation Answer Date Recorded Has the lack of transportati on kept you from meetings, work, or from getting things needed for daily living? No Has the lack of transportati on kept you from medical appointments or from getting medications? No 08/01/2024 Social Isolation Answer Date Recorded How often do you feel lonely or isolated from th ose around you? Always 08/01/2024 Food Risk Answer Date Recorded Within the past 12 months we worried whether our food would run out before we got money to buy more. Sometimes true 025 Within the past 12 months th e food we bought just didn't last and we didn't have money to get more. Sometimes true 08/01/2024 Dependent Care Answer Date Recorded Do you need help finding or paying for care for your loved ones. For example, child nutrition manager or elderly care for an older adult? No 08/01/2024 Education Answer Date Recorded Do you think completing more education or training, like finishing a GED, going to college, or learning a trade, would be helpful for you? Yes 08/01/2024 Employment and Income Answer Date Recor ded During the last four weeks, have you been actively looking for work? Patient declined 08/01/2024 Living Situation Answer Date Recorded What is your living situation? 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 Para Term AB IAB SAB Ectopic Multiple Livin g Live Births 9 3 3 3 Date Outcome GA Total Labor Labor/2nd/3rd Weight Sex Type Anes PTL Kaylyn A1 A5 Name Clin Term Term Term 2002 Vag-S pont 2005 Vag-S pont 2017 CS-LT ranv Comments:had pneumotho rax during 04/2022 Last Filed Vital Signs Vital Sign Reading Time Taken Comments Blood Pressure 96/58 02/23/2025 9:06 AM EDT Pulse 107 02/23/2025 9:06 AM EDT Temperature 36.9 C (98.4 F) 02/23/2025 9:06 AM EDT Respiratory Rate - - Oxygen Saturation 98% 02/23/2025 9:06 AM EDT Inhaled Oxygen Concentration - - Weight 52.2 kg (115 lb) 10/17/2024 1:26 PM EDT Height 154.9 cm (5' 1 ) 10/17/2024 1:26 PM EDT Body Mass Index 21.73 10/17/2024 1:26 PM EDT Plan of Treatment Health Maintenance Due Date Last Done Comments Hepatitis B Vaccines (1 of 3 - 19+ 3-dose series) 01/30/1999 Colorectal Cancer Screening: Colonoscopy 03/15/2022 COVID-19 Vaccine (3 - 2024-2 6 season) 2025 02/19/2021, 01/20/2021 Influenza Vaccine (#1) 2025 Social Influencers of Health Screening 08/01/2025 08/01/2024 Breast Cancer Screening 10/17/2026 10/18/19, 02/28/2023 Cholesterol Screening (Lipid Panel) 12/05/2028 12/06/2023, 12/06/2023 Cervical Cancer Screening: HPV 08/01/2029 08/01/2024 DTaP,Tdap,and Td Vaccines (2 - Td or Tdap) 02/27/2033 02/27/2023 Depression Screening Completed 08/01/2024, 12/06/2023 HIV Screening Completed 08/01/2024 Hepatitis C Screening Completed 08/01/2024 HIB Vaccines Aged Out No longer eligi ble based on patient's age to complete this topic HPV Vaccines Aged Out No longer eligi ble based on patient's age to complete this topic Hepatitis A Vaccines Aged Out No long er eligible based on patient's age to complete this topic IPV Vaccines Aged Out No longer eligi ble based on patient's age to complete this topic MMR Vaccines Aged Out No longer eligi ble based on patient's age to complete this topic Meningococcal ACWY Vaccine Aged Out N o longer eligible based on patient's age to complete this topic Meningococcal B Vaccine Aged Out No l onger eligible based on patient's age to complete this topic Pneumococcal Vaccine: Pediatrics (0 to 5 Years) and At-Risk Patients (6 to 49 Years) Aged Out No longer eligible b ased on patient's age to complete this topic RSV Immunization Patients Under 20 months Aged Out No longer eligible b ased on patient's age to complete this topic Varicella Vaccines Aged Out No longer eligible based on patient's age to complete this topic Procedures Procedure Name Priority Date/Time Associated Diagnosis Comments POC RAPID STREP A Routine 02/23/2025 10: 07 AM EDT Peritonsillar abscess MG MAMMO DIGITAL SCREENING W KRISTIN BILAT Routine 10/17/2024 1:35 PM EDT Encounter for screening mammogram for malignant neoplasm of breast HEPATITIS C ANTIBODY Routine 08/01/2024 2:07 PM EST Venereal disease screening Encounter for screening for viral disease HIV 1, 2 ANTIBODY, P24 ANTIGEN WITH REFLEX TO DIFFERENTIATION Routine 08/01/2024 2:07 PM EST Venereal disease screening Encounter for screening for viral disease HPV WITH REFLEX GENOTYPE Routine 08/01/2024 1:39 PM EST Screening for cervical cancer HM DEPRESSION SCREENING Routine 12/06/2023 LIPID PANEL Routine 12/06/2023 from Last 3 Months or Most Recently Relevant to Health Maintenance Results * POC rapid strep A manually resulted (02/23/2025 10:07 AM EDT) Rapid Strep A Screen POC Negative Negative Internal Control Pass Yes Yes Swab Structure of anterior region of neck / Unknown 02/23/2025 10:[address] POINT OF CARE TEST ENTER/E DIT ORDERABLES Final Result * MG Mammo Digital Screening w Kristin bilat (10/17/2024 1:35 PM EDT) Anatomical Region Laterality Modality Breast Bilateral Mammography 10/20/2024 8:01 AM EDT Impressions 10/20/2024 8:04 AM EDT No mammographic evidence of malignancy. A negative mammogram in the presence of a clinically suspicious palpable abnormality does not preclude the possibility of malignancy or alter the indications for biopsy. PQRI CPT II 3341F Code 03484, 71527 PQRI 225 CPT II 7025F TISSUE DENSITY: There are scattered areas of fibroglandular density. (BI-RADS category B) IMPRESSION: Benign. BI-RADS CATEGORY: 1 - NEGATIVE RECOMMENDATION: Screening bilateral mammogram is recommended in 1 year. Mammo Location: [facility], [address] [place] [address] -------- FINAL REPORT -------- Dictated By: Bo Ku Dictated Date: 10/20/2024 08:01 ET Assigned Physician: Bo Ku Reviewed and Electronically Signed By: Bo Ku Signed Date: 10/20/2024 08:04 ET Workstation ID: [id number] Transcribed By: Self Edit Transcribed Date: 10/20/2024 08:01 ET Narrative 10/20/2024 8:04 AM EDT CLINICAL: The patient is a 44 years Female presenting for baseline screening mammography. COMPARISON: None TECHNIQUE: Full-field digital mammography of the breasts bilaterally consisting of tomosynthesis in MLO and CC projection is performed in the TipTapographe 2000-D unit. Computer aided detection utilizing the iCAD system was utilized. FINDINGS: The breasts are seen to be composed of a combination of fatty and fibroglandular elements. There is no cluster of microcalcifications, mass, or area of architectural distortion. There is no skin thickening or nipple retraction. Procedure Note Bo Ku MD - 10/20/2024 CLINICAL: The patient is a 44 years Female presenting for baselinescreening mammography. COMPARISON: None TECHNIQUE: Full-field digital mammography of the breasts bilaterallyconsisting of tomosynthesis in MLO and CC projection is performed in the[employer] Senographe 2000-D unit. Computer aided detection utilizing the iCADsystem was utilized. FINDINGS: The breasts are seen to be composed of a combination of fattyand fibroglandular elements. There is no cluster of microcalcifications,mass, or area of architectural distortion. There is no skin thickening ornipple retraction. IMPRESSION: No mammographic evidence of malignancy. A negative mammogram in the presence of a clinically suspicious palpableabnormality does not preclude the possibility of malignancy or alter theindications for biopsy. PQRI CPT II 3341F Code 76316, 90589 PQRI 225 CPT II 7025F TISSUE DENSITY: There are scattered areas of fibroglandular density.(BI-RADS category B) IMPRESSION: Benign. BI-RADS CATEGORY: 1 - NEGATIVE RECOMMENDATION: Screening bilateral mammogram is recommended in 1 year. Mammo Location: [facility], [address] [place] [id number] -------- FINAL REPORT -------- Dictated By: Bo Ku Dictated Date: 10/20/2024 08:01 ET Assigned Physician: Bo Ku Reviewed and Electronically Signed By: Bo Ku Signed Date: 10/20/2024 08:04 ET Workstation ID: [id number] Transcribed By: Self Edit Transcribed Date: 10/20/2024 08:01 ET [facility] IMG BI PROCEDURES Final Res ult * Hepatitis C antibody (08/01/2024 2:07 PM EST) Pathologist [facility] Hepatitis C Antibody Negative Negative LAB CHEMISTRY METHOD 08/01/2024 5:10 PM EST [facility] Blood Venous blood specimen / Unknown Venipuncture / Unknown 08/01/2024 2:07 PM EST 08/01/2024 2:07 PM EST [facility] LAB BLOOD ORDERABLES Final Result [facility] [address] [place] [address], [place] [phone] * HIV 1,2 antibody, p24 antigen with reflex to differentiation (08/01/2024 2:07 PM EST) [facility] HIV Combo AB/AG Negative Negative LAB CHEMISTRY METHOD 08/01/2024 5:12 PM EST [facility] Blood Venous blood specimen / Unknown Venipuncture / Unknown 08/01/2024 2:07 PM EST 08/01/2024 2:07 PM EST Narrative [facility] - 08/01/2024 5:12 PM EST This assay is a 4th generation assay allowing for earlier detection of HIV infection by detecting the presence of the HIV-1 p24 antigen as well as the traditional antibodies to HIV type 1 (including group O) and type 2. Use of a 4th generation assay is the current CDC recommendation for HIV screening. [facility] LAB BLOOD ORDERABLES Final Result Performing Organization Address City/[facility]/ZIP Co de Phone Number [facility] [address] [place] [address], * HPV with reflex genotype (08/01/2024 1:39 PM EST) [facility] HPV Negative Negative LAB MICROBIOLOGY METHOD 08/05/2024 1:34 PM EST [facility] Brushing/Spatula Cervix uteri structure / Unknown 08/01/2024 1:39 PM EST 08/05/2024 6:10 AM EST [facility] MOLECULAR DIAGNOSTICS O RDERABLES Final Result Performing Organization Address [facility] Co de Phone Number [facility] [address] [place] [address], * Depression Screening (12/06/2023) Pathologist [facility] Depression Screening Abstracted Historical Provider HEALTH MAINTENANCE Final Result * (ABNORMAL) Lipid panel (12/06/2023) [facility] LDL/HDL Ratio 3 0 - 4 Triglycerides 60 0 - 150 mg/dL Cholesterol 202(A) 0 - 200 mg/dL HDL 74 >=40 mg/dL LDL Cholesterol 116(A) 0 - 100 mg/dL Blood Venous blood specimen / Unknown Historical Provider LAB BLOOD ORDERABLES Juliann l Result from Last 3 Months or Most Recently Relevant to Health Maintenance Insurance [facility] [employer] Care Teams 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
== END 2025-03-27 09:48 | disposition home or self-care (01) ==
LOC: HO.HSMS 08:42
PROVIDERS: PCP Physician Assistant; Visit Provider Nurse Practitioner Family
DX: G43.E09 Chronic migraine with aura, not intractable, without status migrainosus (principal); E23.6 Other disorders of pituitary gland; D64.9 Anemia, unspecified
CPT/HCPCS: 99214

== ENCOUNTER → 2025-03-27 08:41 | Outpatient (BNVA) | payer OTHER, SELFPAY | PROVIDERS: PCP Physician Assistant; Visit Provider Nurse Practitioner Family | DX: G43.E09 Chronic migraine with aura, not intractable, without status migrainosus (principal); E23.6 Other disorders of pituitary gland; D64.9 Anemia, unspecified | CPT/HCPCS: 99212 ==